=== PATIENT | female | born 1980 | race Caucasian/White ===

== ENCOUNTER 2016-11-10 03:23 | Emergency (ER) | payer BC ==
[~2016-11-10] VITALS: Ht 167.6 cm; Wt 88.5 kg
[2016-11-10 03:49] LABS: BASO # 0.1 x10^3/uL (0.0-0.2); BASO % 1 % (0-3); EOS % 2 % (0-3); HEMATOCRIT 46.1 % (36.0-47.0); HEMOGLOBIN 15.5 g/dL (12.0-15.5); LYMPH # 2.1 x10^3/uL (1.0-4.8); LYMPH % 23 % (24-48); MEAN CORPUSCULAR HEMOGLOBIN 30 pg (25-35); MEAN CORPUSCULAR HGB CONC 34 g/dL (31-37); MEAN CORPUSCULAR VOLUME 90 fL (79-100); MONO % 6 % (0-9); NEUT % 69 % (31-73); PLATELET COUNT 193 x10^3/uL (140-400); RED CELL DISTRIBUTION WIDTH 14.3 % (11.5-14.5); WHITE BLOOD COUNT 9.2 x10^3/uL (4.0-11.0)
[2016-11-10 03:59] LABS: CALCIUM 9.5 mg/dL (8.5-10.1); CREATININE 0.9 mg/dL (0.6-1.0); GFR 71.7; POTASSIUM 3.7 mmol/L (3.5-5.1)
[2016-11-10 04:04] LABS: ALBUMIN 4.1 g/dL (3.4-5.0); ALBUMIN/GLOBULIN RATIO 1.5 (1.0-1.7); TOTAL BILIRUBIN 1.4 mg/dL (0.2-1.0); TOTAL PROTEIN 6.8 g/dL (6.4-8.2)
[2016-11-10 04:30] VITALS: BP 149/102
[2016-11-10] MEDS ORDERED: ONDANSETRON PF 4 MG/2 ML VIAL. IV ONE (04:30)
[2016-11-10] MEDS ORDERED: LIDO:MAALOX:DONNATAL 1:1:1 15 ML SINGLE DOSE SWSW ONE (04:30)
[2016-11-10] MEDS ORDERED: KETOROLAC 15 MG/ML VIAL. IV ONE (04:30)
[2016-11-10] MEDS ORDERED: CONTRAST GIVEN MC PRN (04:45)
[2016-11-10] MEDS ORDERED: IOHEXOL 300 MG/ML 75 ML VIAL IV ONE (05:00)
--- NOTE | 2016-11-10 05:20 | RAD ---
PROCEDURE CTA chest with contrast dated 11/10/2016. HISTORY Chest pain for 1 week. TECHNIQUE Contiguous axial imaging of the chest performed following the intravenous administration of 75 cc Isovue-370. Study was performed as a dedicated PE protocol with thin cut coronal MIPS 3D reconstructions.Exposure: One or more of the following individualized dose reduction techniques were utilized for this exam: 1. Automated exposure control. 2. Adjustment of the mA and/or kV according to patient size. 3. Use of iterative reconstruction technique. COMPARISON None. FINDINGS Contrast bolus is adequate. There is no evidence of central, lobar or segmental pulmonary embolus. Heart size mildly enlarged. Possible small atrial septal defect. No pericardial effusion. No mediastinal, hilar or axillary lymphadenopathy. Borderline enlarged pretracheal lymph node measures 9 millimeter short axis. Central airways are patent. Small right pleural effusion. Diffuse bronchial wall thickening with some prominent interstitial changes, basilar predominant. Calcified granuloma right upper lobe. It there is some vague ground-glass opacity scattered throughout both lungs. No pneumothorax. Limited images of upper abdomen are unremarkable. Bb no acute bony abnormality. IMPRESSION - No evidence of central, lobar or segmental pulmonary embolus. - Cardiomegaly. There is a possible small atrial septal defect. - Diffuse interstitial changes throughout both lungs, nonspecific but possibly related to low grade edema. There is a small right pleural effusion. Electronically signed by: Trevon Jones (Nov 10, 2016 05:18:45)
[2016-11-10] MEDS ORDERED: TRAM-29 PO (05:38)
--- NOTE | 2016-11-10 05:39 | PHYS DOC ---
Past Medical History Past Medical History: Diverticulitis, Hypertension Past Surgical History: Other Additional Past Surgical Histo: PART OF SMALL BOWEL REMOVED, MARITZA Alcohol Use: None Drug Use: None Adult General Chief Complaint Chief Complaint: CHEST PAIN HPI HPI Patient is a 36 year old female who presents here today complaining of feeling like her heart is racing and having discomfort in her midepigastric area as well as her sternal region. Patient reports that his Piccone on for approximately one week. Patient reports that she went to see her primary care physician on Friday and they told her everything looked normal however there are schedule her for an outpatient echocardiogram. Patient denies any fevers shakes chills. Patient reports she's had nausea vomiting and diarrhea while she was on Keflex for recent infection to the back of her scalp. Patient reports when she saw her doctor she thought that her symptoms might be secondary to an allergic reaction and they had her stop her Keflex. Patient denies any lower 70 edema, abdominal pain, history of DVT or PE, family history of DVT or PE. Patient reports that she has a history of hypertension, history of diverticulitis, has had a colectomy secondary to diverticulitis. Patient does smoke she does not drink or do drugs. Patient denies any diabetes heart failure COPD or coronary artery disease. Patient denies any other abdominal surgeries. Patient's physical exam was remarkable for tenderness to palpation in her midepigastric region. Patient's heart was regular rate and rhythm without any murmurs gallops or rubs. Patient's lungs were clear without any wheezing rales or rhonchi. Patient's lower extremities did not show any edema or Homans sign. Patient's ER workup has been unremarkable. Patient's labs were all within normal limits. Patient's chest x-ray did not reveal any acute pathology. Patient 's heart size on her chest x-ray was mildly enlarged. We obtained a CTA of her chest to rule out PE, dissection. Patient's CT scan of her thorax was negative for any acute pathology however there was concern that her heart size was enlarged and that she might have an ASD. These results were directly related to the patient and her . I discussed with the patient etiology of her chest pain is unclear. Patient's workup here is negative. I have recommended that she follow-up with her doctor as scheduled. Continue her further outpatient workup. Review of Systems Review of Systems Constitutional: Denies fever or chills [] Eyes: Denies change in visual acuity, redness, or eye pain [] All other review systems are negative except as documented in the history of present illness portion Current Medications Current Medications Current Medications Medications (Trade) Dose Ordered Sig/Cali Start Time Stop Time Status Last Admin Dose Admin Info (Do NOT chart on this entry -- for MONITORING) 1 each PRN DAILY PRN 11/10/16 04:45 11/12/16 04:44 Iohexol (Omnipaque 300 Mg/ml) 75 ml 1X ONCE 11/10/16 05:00 11/10/16 05:01 DC Ketorolac Tromethamine (Toradol) 15 mg 1X ONCE 11/10/16 04:30 11/10/16 04:31 DC 11/10/16 04:30 15 MG Multi-Ingredient Mouthwash/Gargle (Gi Cocktail Single Dose) 15 ml 1X ONCE 11/10/16 04:30 11/10/16 04:31 DC 11/10/16 04:31 15 ML Ondansetron HCl (Zofran) 4 mg 1X ONCE 11/10/16 04:30 11/10/16 04:31 DC 11/10/16 04:31 4 MG Allergies Allergies Allergies Coded Allergies Type Severity Reaction Last Updated Verified cephalexin Allergy Intermediate 11/10/16 Yes codeine Allergy Intermediate 11/10/16 Yes dopamine Allergy Intermediate 11/10/16 Yes hydromorphone Allergy Intermediate 11/10/16 Yes latex Allergy Intermediate 11/10/16 Yes morphine Allergy Intermediate 11/10/16 Yes peanut Allergy Intermediate 11/10/16 Yes Physical Exam Physical Exam Constitutional: Well developed, well nourished, no acute distress, non-toxic appearance. [] HENT: Normocephalic, atraumatic, bilateral external ears normal, oropharynx moist, no oral exudates, nose normal. [] Eyes: PERRLA, EOMI, conjunctiva normal, no discharge. [] Neck: Normal range of motion, no tenderness, supple, no stridor. [] Cardiovascular:Heart rate regular rhythm, Lungs & Thorax: Bilateral breath sounds clear to auscultation [] Abdomen: Bowel sounds normal, soft, no tenderness, no masses, no pulsatile masses. [] Skin: Warm, dry, no erythema, no rash. [] Back: No tenderness, no CVA tenderness. [] Extremities: No tenderness, no cyanosis, no clubbing, ROM intact, no edema. [] Neurologic: Alert and oriented X 3, normal motor function, normal sensory function, no focal deficits noted. [] Psychologic: Affect normal, judgement normal, mood normal. [] Current Patient Data Vital Signs Vital Signs Date Time Temp Pulse Resp B/P Pulse Ox O2 Delivery O2 Flow Rate FiO2 11/10/16 03:57 98.7 102 29 153/108 97 Room Air 98.7 Lab Values Laboratory Tests Test 11/10/16 03:40 11/10/16 04:28 White Blood Count 9.2x10^3/uL (4.0-11.0) Red Blood Count 5.10x10^6/uL (3.50-5.40) Hemoglobin 15.5g/dL (12.0-15.5) Hematocrit 46.1% (36.0-47.0) Mean Corpuscular Volume 90fL (79-100) Mean Corpuscular Hemoglobin 30pg (25-35) Mean Corpuscular Hemoglobin Concent 34g/dL (31-37) Red Cell Distribution Width 14.3% (11.5-14.5) Platelet Count 193x10^3/uL (140-400) Neutrophils (%) (Auto) 69% (31-73) Lymphocytes (%) (Auto) 23% (24-48) L Monocytes (%) (Auto) 6% (0-9) Eosinophils (%) (Auto) 2% (0-3) Basophils (%) (Auto) 1% (0-3) Neutrophils # (Auto) 6.3x10^3uL (1.8-7.7) Lymphocytes # (Auto) 2.1x10^3/uL (1.0-4.8) Monocytes # (Auto) 0.6x10^3/uL (0.0-1.1) Eosinophils # (Auto) 0.2x10^3/uL (0.0-0.7) Basophils # (Auto) 0.1x10^3/uL (0.0-0.2) Sodium Level 142mmol/L (136-145) Potassium Level 3.7mmol/L (3.5-5.1) Chloride Level 105mmol/L (98-107) Carbon Dioxide Level 23mmol/L (21-32) Anion Gap 14 (6-14) Blood Urea Nitrogen 12mg/dL (7-20) Creatinine 0.9mg/dL (0.6-1.0) Estimated GFR (Cockcroft-Gault) 71.7 BUN/Creatinine Ratio 13 (6-20) Glucose Level 108mg/dL (70-99) H Calcium Level 9.5mg/dL (8.5-10.1) Total Bilirubin 1.4mg/dL (0.2-1.0) H Aspartate Amino Transferase (AST) 25U/L (15-37) Alanine Aminotransferase (ALT) 25U/L (14-59) Alkaline Phosphatase 94U/L (46-116) Troponin I Quantitative < 0.017ng/mL (0.000-0.055) Total Protein 6.8g/dL (6.4-8.2) Albumin 4.1g/dL (3.4-5.0) Albumin/Globulin Ratio 1.5 (1.0-1.7) Lipase 188U/L (73-393) POC Urine HCG, Qualitative Hcg negative (Negative) Laboratory Tests 11/10/16 03:40 Laboratory Tests 11/10/16 03:40 EKG EKG [] Radiology/Procedures Radiology/Procedures [] Course & Med Decision Making Course & Med Decision Making Pertinent Labs and Imaging studies reviewed. (See chart for details) [] Dragon Disclaimer Dragon Disclaimer This electronic medical record was generated, in whole or in part, using a voice recognition dictation system. Departure Departure Impression: Primary Impression: Nonspecific chest pain Disposition: HOME, SELF-CARE Condition: IMPROVED Referrals: BELEN BERGER DO (PCP) Patient Instructions: Chest Pain (Nonspecific) Scripts Tramadol Hcl (Ultram)50 Mg Tablet1 Tab PO Q6HRS #14 TAB Prov:KELLY SUN MD 11/10/16 KELLY SUN MD Nov 10, 2016 05:39
--- NOTE | 2016-11-10 07:50 | RAD ---
Examination: Single frontal view chest History: History of chest pain for one week Comparison: None available Findings: Mild cardiomegaly. Mild prominent appearing bilateral interstitial lung markings. There is no evidence of pleural effusion or pneumothorax identified. Impression: 1. Mild cardiomegaly with mild prominent appearing interstitial lung markings could be mild edema.
--- NOTE | 2016-11-10 09:54 | EKG ---
[facility] [address] [place] [address] Test Date: 2016-11-10 Test Time: 03:31:24 Pat Name: MEGAN REEVES Department: Room: Gender: F Medical Intern: LAURA : 1980 Requested By: KELLY SUN Order Number: [id number] Reading MD: Charli Akins Measurements Intervals Wheeler Rate: 106 P: 39 NH: 160 QRS: 77 QRSD: 94 T: 3 QT: 324 QTc: 432 Interpretive Statements SINUS TACHYCARDIA LEFT ATRIAL ABNORMALITY NONSPECIFIC ST-T WAVE CHANGES. RI6.01 Unconfirmed report No previous ECG available for comparison Electronically Signed On 11-11-2016 14:09:22 DUMP OPERATOR by Charli Akins
== END 2016-11-10 06:30 | disposition home or self-care (01) ==
LOC: ER 03:23
DX: R07.89 Other chest pain (principal); I10 Essential (primary) hypertension; F17.200 Nicotine dependence, unspecified, uncomplicated; Z90.49 Acquired absence of other specified parts of digestive tract; Z88.1 Allergy status to other antibiotic agents; Z88.5 Allergy status to narcotic agent; Z91.040 Latex allergy status; Z91.010 Allergy to peanuts; Z88.8 Allergy status to other drugs, medicaments and biological substances
CPT/HCPCS: 36415; 71010; 71275; 80053; 81025; 83690; 84484; 85027; 93005; 96374; 96375; 99285; J1885; J2405